=== PATIENT | female | born 1990 ===

== ENCOUNTER → 2021-06-29 | Outpatient (CLI) | payer SELFPAY ==
[2021-07-01 17:16] LABS: CORONAVIRUS (COVID19) CSH-NRL Positive (Negative)
== END | disposition home or self-care (01) ==
LOC: LAB SHORT 12:33
PROVIDERS: Chiropractor
DX: Z20.822 Contact with and (suspected) exposure to COVID-19 (principal)
CPT/HCPCS: U0003